=== PATIENT | female | born 1975 | race Caucasian/White ===

== ENCOUNTER → 2020-05-11 | Outpatient (CLI) | payer BC ==
--- NOTE | 2020-05-11 09:05 | Diagnostic Imaging Report ---
X-ray chest 2 views History: Cough, wheezing, shortness of breath. Comparison: None Findings: Central airways, cardiomediastinal silhouettes, diaphragms, pleural spaces, lung delgado, visualized skeleton and upper abdomen are unremarkable. Impression: Normal exam. Signed by: Jose Rafael Rock MD on 05/11/2020 9:01 AM
== END ==
LOC: EDBD 06:58 → RAD 06:58
PROVIDERS: ATTEND Family Medicine
DX: R06.2 Wheezing (principal); B97.21 SARS-associated coronavirus as the cause of diseases classified elsewhere; R05 Cough
CPT/HCPCS: 71046